=== PATIENT | male | born 1975 | race Caucasian/White ===

== ENCOUNTER 2016-11-11 07:37 | Outpatient (CLI) | payer BC | END 2016-11-11 07:38 | disposition home or self-care (01) | DX: S43.431A Superior glenoid labrum lesion of right shoulder, initial encounter (principal); M75.101 Unspecified rotator cuff tear or rupture of right shoulder, not specified as traumatic; M24.111 Other articular cartilage disorders, right shoulder; M75.81 Other shoulder lesions, right shoulder ==

== ENCOUNTER 2017-09-15 16:13 | Outpatient (CLI) | payer BC ==
--- NOTE | 2017-09-16 10:56 | MRI Report ---
EXAM: MRI CERVICAL SPINE WITHOUT CONTRAST EXAM DATE: 09/15/2017 04:48 PM. CLINICAL HISTORY: Cervical radiculopathy, right. Numbness in the fourth and fifth digits. COMPARISONS: None. TECHNIQUE: Multiplanar, multisequence T1-weighted and fluid-sensitive sequences of the cervical spine without contrast. Other: None. FINDINGS: Neurologic Structures: The visualized posterior fossa structures are unremarkable. No signal abnormal ity in the visualized spinal cord. Alignment: Normal. No scoliosis or spondylolisthesis. Bone Marrow: No gross fractures or bone lesions. No marrow edema. Interspace Levels/Facets: C1-C2: Unremarkable on sagittal series. C2-C3: Unremarkable. C3-C4: Unremarkable. Mild degenerative uncovertebral change. No stenosis. C4-C5: Unremarkable. C5-C6: Mild loss of disk space height. Mild central dorsal disk protrusion. Anterior concavity to the ventral thecal sac and spinal cord is noted. No stenosis. C6-C7: Mild loss of disk space height. Lobular dorsal subligamentous disk protrusion. Lobular effacem ent of the ventral thecal sac and spinal cord. Mild central canal stenosis. Mild degenerative uncover tebral change. No foraminal stenosis. C7-T1: Unremarkable. Musculature: Normal. No edema or fatty atrophy. Other: The paravertebral and prevertebral soft tissues are normal. IMPRESSION: 1. C6-C7: Mild degenerative disk change. Lobular dorsal disk protrusion. Mild central canal stenosis. 2. C5-C6: Mild degenerative disk change. Central dorsal disk protrusion. No stenosis. [facility] Referring Provider Line: [phone] SITE ID: [id number]
== END 2017-09-15 16:14 | disposition home or self-care (01) ==
LOC: DI 16:13
PROVIDERS: ATTEND Family Medicine
DX: M50.222 Other cervical disc displacement at C5-C6 level (principal); M50.322 Other cervical disc degeneration at C5-C6 level; M47.892 Other spondylosis, cervical region
CPT/HCPCS: 72141

== ENCOUNTER 2022-01-03 13:55 | Outpatient (CLI) | payer OTHER ==
--- NOTE | 2022-01-03 15:39 | XRAY Report ---
PROCEDURE: Cervical Spine w/Flex/Ext INDICATIONS: DDD, C-SPINE TECHNIQUE: 7 views of the cervical spine were acquired. COMPARISON: None. FINDINGS: Bones: No fractures or dislocations to the C7-T1 level. There is straightening and mild reversal of normal cervical lordosis. Degenerative endplate changes are noted at C5-6 and C6-7 levels with anteri or and dorsal disc osteophyte complex formation. No suspicious bony lesions. Oblique views shows le ft-sided bony foraminal stenosis at C5-6 and C6-7 levels levels. There is decreased range of motion b etween flexion and extension, with preserved cervical spine alignment. Soft tissues: Prevertebral soft tissues are normal in thickness. IMPRESSION: 1. Degenerative disc disease at C5-6 and C6-7 levels with right-sided bony foraminal stenosis at thes e levels seen on oblique views. 2. No acute fracture or dislocation. Slightly decreased range of motion of lateral flexion and extens ion views with preserved cervical spine alignment. Reviewed by: Santo Cisneros MD on 01/03/2022 3:38 PM PST Approved by: Santo Cisneros MD on 01/03/2022 3:38 PM PST Station ID: [id number]
== END 2022-01-03 13:56 | disposition home or self-care (01) ==
LOC: DI.N 13:55
PROVIDERS: ATTEND Internal Medicine
DX: M50.322 Other cervical disc degeneration at C5-C6 level (principal); M48.02 Spinal stenosis, cervical region